=== PATIENT | female | born 1990 | race Caucasian/White ===

== ENCOUNTER 2020-04-11 17:30 | Emergency (ER) | payer OTHER ==
[~2020-04-11] VITALS: Ht 190.5 cm; Wt 76.2 kg
[2020-04-11] MEDS ORDERED: PROAIR HFA8.5 GM IH (17:40)
[2020-04-11] MEDS ORDERED: DICLOFENAC SODI75 MG PO (19:47)
[2020-04-11] MEDS ORDERED: NORFLEX100MG PO (19:48)
== END 2020-04-11 20:02 | disposition home or self-care (01) ==
LOC: ER 17:30
DX: M62.838 Other muscle spasm (principal); M94.0 Chondrocostal junction syndrome [Tietze]

== ENCOUNTER 2020-09-25 11:20 | Emergency (ER) | payer OTHER ==
[~2020-09-25] VITALS: Ht 190.5 cm; Wt 76.2 kg
[~2020-09-25 11:20] MED LIST: DICLOFENAC SODI75 MG PO; NORFLEX100MG PO; PROAIR HFA8.5 GM IH
[2020-09-25] MEDS ORDERED: KETO10TA2 PO (17:03)
== END 2020-09-25 17:42 | disposition home or self-care (01) ==
LOC: ER 11:20
DX: R10.2 Pelvic and perineal pain (principal); N93.8 Other specified abnormal uterine and vaginal bleeding; N39.0 Urinary tract infection, site not specified